=== PATIENT | female | born 1945 | race Caucasian/White ===

== ENCOUNTER → 2021-07-13 | Outpatient (CLI) | payer MEDICARE ==
[2021-07-13] MEDS: SOTROVIMAB 500 MG in IV DEXTROSE 5% 50 ML IV ONE ×2 (13:30→14:15)
[2021-07-13 14:15] VITALS: BP 138/90
[2021-07-13 14:32] VITALS: BP 121/82
[2021-07-13 14:50] VITALS: BP 125/89
[2021-07-13 15:05] VITALS: BP 116/91
[2021-07-13 15:46] VITALS: BP 123/80
== END | disposition home or self-care (01) ==
LOC: OPSVCOP 11:35
PROVIDERS: ATTEND Internal Medicine Pulmonary Disease
DX: U07.1 COVID-19 (principal)
CPT/HCPCS: J7060; M0247; Q0247; 96365